=== PATIENT | female | born 1990 | race Caucasian/White ===

== ENCOUNTER 2016-12-08 11:41 | Emergency (ER) | payer MEDICAID ==
[~2016-12-08] VITALS: Ht 162.6 cm; Wt 98.0 kg
--- NOTE | 2016-12-08 11:45 | NUR ---
Dr Magana at triage room for Medical screening
[2016-12-08 11:57] VITALS: BP 140/78; PULSE 102; RESP 20; TEMP 97.9; O2SAT 97
[2016-12-08] MEDS ORDERED: ACETAMINOPHEN 325 MG TABLET PO ONE (12:00)
--- NOTE | 2016-12-08 12:00 | NUR ---
Patient to ER bed 03 to gown for evaluation. Side rails up.
--- NOTE | 2016-12-08 12:01 | NUR ---
Pt brought by mother, A&Ox4, pt c/o L flank pain since this am,pt states she is 18 weeks prenant , denies N/V/D or vaginal bleeding, skin pink and warm, cap refill <3, VSS, respirations even and unlabored.
--- NOTE | 2016-12-08 12:05 | NUR ---
Pt off the unit for ultrasound
[2016-12-08 12:25] LABS: BILIRUBIN,URINE NEGATIVE (NEGATIVE); BLOOD, URINE NEGATIVE (NEGATIVE); CLARITY/URINE SL CLOUDY (CLEAR); COLOR,URINE YELLOW (YELLOW); GLUCOSE,URINE NEGATIVE (NEGATIVE); KETONES,URINE NEGATIVE (NEGATIVE); LEUKOCYTE ESTERASE ,URINE 3+ (NEGATIVE); NITRITE, URINE NEGATIVE (NEGATIVE); PROTEIN URINE NEGATIVE (NEGATIVE); UROBILINOGEN,URINE 0.2 (0.2-1.0)
--- NOTE | 2016-12-08 12:30 | NUR ---
Pt returned tolerated well.
[2016-12-08 12:31] LABS: BACTERIA,URINE MODERATE /HPF (None Seen); MUCUS,URINE 1+ /LPF (None Seen); RBC,URINE 0-3 /HPF (0-3)
[2016-12-08] MEDS ORDERED: cefTRIAXone 1 GM in LIDOCAINE 1%, 20 ML MDV 2.1 ML IM ONE (13:15)
[2016-12-08 13:19] LABS: BASOPHILS % (AUTO) 0.3 % (0.0-2.0); EOSINOPHILS # (AUTO) 0.3 K/uL (0.0-0.4); EOSINOPHILS % (AUTO) 2.5 % (0.0-4.0); HEMATOCRIT 31.2 % (36-48); HEMOGLOBIN 10.5 g/dL (12.0-16.0); LYMPHOCYTES # (AUTO) 1.6 K/uL (1.0-5.5); LYMPHOCYTES % (AUTO) 11.7 % (20.5-51.5); MEAN CORPUSCULAR HEMOGLOBIN 29 pg (27-31); MEAN CORPUSCULAR HGB CONC 34 % (32-36); MEAN CORPUSCULAR VOLUME 87 fL (79.0-98.0); MONOCYTES # (AUTO) 0.7 K/uL (0.0-1.0); MONOCYTES % (AUTO) 5.6 % (1.7-9.3); NEUTROPHILS # (AUTO) 10.7 K/uL (1.8-7.7); NEUTROPHILS % (AUTO) 79.9 % (40.0-70.0); PLATELET COUNT (AUTO) 286 K/uL (130-430); RED BLOOD CELL COUNT(AUTO) 3.59 MIL/uL (4.2-6.2); RED CELL DISTRIBUTION WIDTH 12.5 % (9.0-15.0); WHITE BLOOD COUNT (AUTO) 13.3 K/uL (4.8-10.8)
[2016-12-08 13:26] LABS: CALCIUM 8.9 mg/dL (8.4-11.0); CREATININE 0.58 mg/dL (0.55-1.30); POTASSIUM 4.3 mmol/L (3.5-5.1)
[2016-12-08 13:37] LABS: ALBUMIN 2.8 g/dL (3.4-4.8); TOTAL BILIRUBIN 0.2 mg/dL (0.0-1.0); TOTAL PROTEIN, SERUM 7.2 g/dL (6.4-8.3)
--- NOTE | 2016-12-08 13:45 | NUR ---
Pt reports pain resolving.
[2016-12-08 14:35] VITALS: BP 138/76; PULSE 90; RESP 20; TEMP 98
--- NOTE | 2016-12-08 14:35 | NUR ---
Patient given written and verbal discharge instructions and verbalizes understanding. ER MD discussed with patient the results and treatment provided. Given copies of tests performed in ER. Patient in stable condition. ID arm band removed. Rx of macrobid,tylenol given. Patient educated on pain management and to follow up with PMD. Pain Scale 0. Opportunity for questions provided and answered.
[2016-12-08 14:42] VITALS: O2SAT 97
== END 2016-12-08 14:35 | disposition home or self-care (01) ==
LOC: SED 11:41
DX: O23.42 Unspecified infection of urinary tract in pregnancy, second trimester (principal); Z3A.18 18 weeks gestation of pregnancy
CPT/HCPCS: 36415; 76805; 80053; 81000; 81025; 84702; 85025; 87086; 96372; 99285; J0696; J2001

== ENCOUNTER 2016-12-15 19:48 | Emergency (ER) | payer MEDICAID ==
[~2016-12-15] VITALS: Ht 162.6 cm; Wt 95.3 kg
[2016-12-15 19:48] VITALS: BP_SYST 119
[2016-12-15 20:59] LABS: BASOPHILS # (AUTO) 0.1 K/uL (0.0-0.2); BASOPHILS % (AUTO) 0.5 % (0.0-2.0); EOSINOPHILS # (AUTO) 0.3 K/uL (0.0-0.4); EOSINOPHILS % (AUTO) 2.3 % (0.0-4.0); HEMATOCRIT 31.3 % (36-48); HEMOGLOBIN 10.6 g/dL (12.0-16.0); LYMPHOCYTES # (AUTO) 1.7 K/uL (1.0-5.5); LYMPHOCYTES % (AUTO) 13.4 % (20.5-51.5); MEAN CORPUSCULAR HEMOGLOBIN 29 pg (27-31); MEAN CORPUSCULAR HGB CONC 34 % (32-36); MEAN CORPUSCULAR VOLUME 87 fL (79.0-98.0); MONOCYTES # (AUTO) 0.9 K/uL (0.0-1.0); MONOCYTES % (AUTO) 6.6 % (1.7-9.3); NEUTROPHILS % (AUTO) 77.2 % (40.0-70.0); PLATELET COUNT (AUTO) 311 K/uL (130-430); RED BLOOD CELL COUNT(AUTO) 3.61 MIL/uL (4.2-6.2); RED CELL DISTRIBUTION WIDTH 12.1 % (9.0-15.0)
[2016-12-15 21:01] LABS: BILIRUBIN,URINE NEGATIVE (NEGATIVE); BLOOD, URINE NEGATIVE (NEGATIVE); CLARITY/URINE HAZY (CLEAR); COLOR,URINE YELLOW (YELLOW); GLUCOSE,URINE NEGATIVE (NEGATIVE); KETONES,URINE NEGATIVE (NEGATIVE); LEUKOCYTE ESTERASE ,URINE 1+ (NEGATIVE); NITRITE, URINE NEGATIVE (NEGATIVE); PH,URINE 6.5 (5.0-8.0); PROTEIN URINE NEGATIVE (NEGATIVE); UROBILINOGEN,URINE 0.2 (0.2-1.0)
[2016-12-15 21:08] LABS: CALCIUM 8.6 mg/dL (8.4-11.0); CREATININE 0.7 mg/dL (0.55-1.30); POTASSIUM 3.8 mmol/L (3.5-5.1)
[2016-12-15 21:24] LABS: BACTERIA,URINE FEW /HPF (None Seen); MUCUS,URINE None Seen /LPF (None Seen); RBC,URINE 0-3 /HPF (0-3); WBC,URINE 20-50 /HPF (0-3)
[2016-12-15 21:37] LABS: ALBUMIN 2.9 g/dL (3.4-4.8); TOTAL BILIRUBIN 0.2 mg/dL (0.0-1.0); TOTAL PROTEIN, SERUM 7.4 g/dL (6.4-8.3)
[2016-12-15] MEDS ORDERED: cefTRIAXone 1 GM in LIDOCAINE 1%, 20 ML MDV 2.1 ML IM ONE (22:15)
[2016-12-15 23:05] VITALS: BP_SYST 124
== END 2016-12-15 23:05 | disposition home or self-care (01) ==
LOC: SED 19:48
DX: O26.892 Other specified pregnancy related conditions, second trimester (principal); R82.71 Bacteriuria; Z3A.19 19 weeks gestation of pregnancy
CPT/HCPCS: 36415; 76805; 80053; 81000; 82150; 83690; 84702; 85025; 87086; 96372; 99285; J0696; J2001

== ENCOUNTER 2017-05-04 21:00 | Emergency (ER) | payer MEDICAID ==
[~2017-05-04] VITALS: Ht 162.6 cm; Wt 72.6 kg
[2017-05-04 21:09] VITALS: BP_SYST 145
[2017-05-04] MEDS ORDERED: MORPHINE 4 MG/ML INJ. SYRINGE IVP ONE (21:30)
[2017-05-04] MEDS ORDERED: DIPHENHYDRAMINE INJ 50 MG/ML VIAL IVP ONE (21:30)
[2017-05-04] MEDS ORDERED: NACL 0.9% 1,000 ML IV ONE (21:45)
[2017-05-04] MEDS ORDERED: MORPHINE 4 MG/ML INJ. SYRINGE ONE (21:52)
[2017-05-04 21:56] LABS: BASOPHILS # (AUTO) 0.1 K/uL (0.0-0.2); BASOPHILS % (AUTO) 0.9 % (0.0-2.0); EOSINOPHILS # (AUTO) 0.1 K/uL (0.0-0.4); EOSINOPHILS % (AUTO) 0.7 % (0.0-4.0); HEMATOCRIT 31.6 % (36-48); HEMOGLOBIN 10.4 g/dL (12.0-16.0); LYMPHOCYTES # (AUTO) 0.9 K/uL (1.0-5.5); LYMPHOCYTES % (AUTO) 12.6 % (20.5-51.5); MEAN CORPUSCULAR HEMOGLOBIN 28 pg (27-31); MEAN CORPUSCULAR HGB CONC 33 % (32-36); MEAN CORPUSCULAR VOLUME 86 fL (79.0-98.0); MONOCYTES # (AUTO) 0.6 K/uL (0.0-1.0); MONOCYTES % (AUTO) 7.7 % (1.7-9.3); NEUTROPHILS # (AUTO) 5.7 K/uL (1.8-7.7); NEUTROPHILS % (AUTO) 78.1 % (40.0-70.0); PLATELET COUNT (AUTO) 375 K/uL (130-430); RED BLOOD CELL COUNT(AUTO) 3.67 MIL/uL (4.2-6.2); RED CELL DISTRIBUTION WIDTH 14.1 % (9.0-15.0); WHITE BLOOD COUNT (AUTO) 7.4 K/uL (4.8-10.8)
[2017-05-04 22:10] LABS: CALCIUM 8.9 mg/dL (8.4-11.0); CREATININE 0.88 mg/dL (0.55-1.30); POTASSIUM 3.6 mmol/L (3.5-5.1)
[2017-05-04 22:11] LABS: BILIRUBIN,URINE 1+ (NEGATIVE); BLOOD, URINE 3+ (NEGATIVE); CLARITY/URINE SL HAZY (CLEAR); COLOR,URINE RED (YELLOW); GLUCOSE,URINE NEGATIVE (NEGATIVE); KETONES,URINE NEGATIVE (NEGATIVE); LEUKOCYTE ESTERASE ,URINE TRACE (NEGATIVE); NITRITE, URINE NEGATIVE (NEGATIVE); PH,URINE 6.5 (5.0-8.0); PROTEIN URINE 2+ (NEGATIVE); UROBILINOGEN,URINE 0.2 (0.2-1.0)
[2017-05-04 22:14] LABS: ALBUMIN 2.8 g/dL (3.4-4.8); TOTAL BILIRUBIN 0.5 mg/dL (0.0-1.0); TOTAL PROTEIN, SERUM 7.7 g/dL (6.4-8.3)
[2017-05-04] MEDS ORDERED: ACETAMINOPHEN 500 MG TABLET PO ONE (22:15)
[2017-05-04 22:19] LABS: BACTERIA,URINE FEW /HPF (None Seen); RBC,URINE >100 /HPF (0-3)
[2017-05-04] MEDS ORDERED: cefTRIAXone 1 GM in D5W 50 ML IV ONE (22:30)
[2017-05-04] MEDS ORDERED: cefTRIAXone 1 GM VIAL ONE (22:59)
[2017-05-04 23:40] VITALS: BP_SYST 153
== END 2017-05-04 23:40 | disposition home or self-care (01) ==
LOC: SED 21:00
DX: N39.0 Urinary tract infection, site not specified (principal)
CPT/HCPCS: 36415; 80053; 81000; 81025; 83605; 85025; 87040; 87086; 96361; 96365; 96375; 99284; J0696; J1200; J2270; J7030; J7060

== ENCOUNTER 2017-10-01 17:35 | Emergency (ER) | payer MEDICAID ==
[~2017-10-01] VITALS: Ht 165.1 cm; Wt 77.1 kg
[2017-10-01 18:18] VITALS: BP_SYST 152
--- NOTE | 2017-10-01 18:23 | NUR ---
Pt placed to ER waiting room in stable condition.
[2017-10-01 19:18] LABS: INFLUENZA A&B ANTIGEN SCREEN NEGATIVE FOR A & B (NEGATIVE); STREPTOCOCCUS A SCREEN (RAPID) NEGATIVE (NEGATIVE)
--- NOTE | 2017-10-01 19:44 | NUR ---
Patient to [facility] for evaluation. Side rails up. Report given to KRIS DUARTE.
--- NOTE | 2017-10-01 19:59 | NUR ---
Patient brought in with complaining of cough, bilateral ear pain, sore throat and nausea and vomiting x 4 days. Lungs are clear. Patient is not actively vomiting. Pain of 4/10, dull. No other complaints/injuries per patient or as noted. Will continue to monitor.
--- NOTE | 2017-10-01 20:36 | NUR ---
MARIELA Johnson at bedside examining patient.
[2017-10-01 21:06] VITALS: BP_SYST 152
--- NOTE | 2017-10-01 21:06 | NUR ---
Patient given written and verbal discharge instructions and verbalizes understanding. ER MD discussed with patient the results and treatment provided. Patient in stable condition. ID arm band removed. Rx of promethazine with codeine and azythromycin given. Patient educated on pain management and to follow up with PMD in 2-3 days. Pain Scale 0/10 Opportunity for questions provided and answered.
== END 2017-10-01 21:06 | disposition home or self-care (01) ==
LOC: SED 17:35
DX: J02.9 Acute pharyngitis, unspecified (principal); J06.9 Acute upper respiratory infection, unspecified; B96.89 Other specified bacterial agents as the cause of diseases classified elsewhere
CPT/HCPCS: 36415; 86403; 86710; 87081; 99284

== ENCOUNTER 2018-08-22 09:36 | Emergency (ER) | payer MEDICAID ==
[~2018-08-22] VITALS: Ht 165.1 cm; Wt 104.3 kg
[2018-08-22 09:42] VITALS: BP_SYST 146
--- NOTE | 2018-08-22 09:46 | NUR ---
Patient triaged and placed in waiting room. VSS and patient appears in no acute distress at this time. Accompanied by FRIEND, awaiting available bed, and MD notified of need for MSE.
--- NOTE | 2018-08-22 11:21 | NUR ---
Pt placed in bed 8
--- NOTE | 2018-08-22 11:22 | NUR ---
ER at bedside examining patient.
--- NOTE | 2018-08-22 11:35 | NUR ---
Patient given written and verbal discharge instructions and verbalizes understanding. ER MD discussed with patient the results and treatment provided. Patient in stable condition. ID arm band removed. Rx of promethzine with codeine given. Patient educated on pain management and to follow up with PMD. Pain Scale 3. Opportunity for questions provided and answered. Medication side effect fact sheet provided.
[2018-08-22 11:36] VITALS: BP_SYST 144
== END 2018-08-22 11:35 | disposition home or self-care (01) ==
LOC: SED 09:36
DX: J06.9 Acute upper respiratory infection, unspecified (principal); R03.0 Elevated blood-pressure reading, without diagnosis of hypertension
CPT/HCPCS: 99283

== ENCOUNTER 2023-04-13 21:27 | Emergency (ER) | payer MEDICAID ==
[~2023-04-13] VITALS: Ht 165.1 cm; Wt 108.9 kg
[2023-04-13 21:52] VITALS: BP_SYST 137; PULSE 94; RESP 18; TEMP 98.3; O2SAT 98
--- NOTE | 2023-04-14 01:43 | NUR ---
Patient to ER CHAIR for evaluation.
--- NOTE | 2023-04-14 01:45 | NUR ---
PT C/O RIGHT EAR PAIN X 3 DAYS.
--- NOTE | 2023-04-14 02:31 | NUR ---
ER at bedside examining patient.
[2023-04-14] MEDS ORDERED: AUG875 PO (02:36)
[2023-04-14] MEDS ORDERED: IBUP-1969 PO (02:36)
[2023-04-14 02:41] VITALS: BP_SYST 126; PULSE 81; RESP 17; TEMP 98.3; O2SAT 98
--- NOTE | 2023-04-14 02:41 | NUR ---
Patient given written and verbal discharge instructions and verbalizes understanding. ER MD discussed with patient the results and treatment provided. Patient in stable condition. ID arm band removed. Rx of MOTRIN AND AUGMENTIN given. Patient educated on pain management and to follow up with PMD. Pain Scale 0/10 Opportunity for questions provided and answered. Medication side effect fact sheet provided.
== END 2023-04-14 02:41 | disposition home or self-care (01) ==
LOC: SED 21:27
DX: H66.91 Otitis media, unspecified, right ear (principal); H92.01 Otalgia, right ear; I10 Essential (primary) hypertension; Z79.899 Other long term (current) drug therapy
CPT/HCPCS: 99283